=== PATIENT | female | born 1995 | race African-American/Black ===

== ENCOUNTER 2016-10-29 21:34 | Emergency (ER) | payer OTHER ==
[~2016-10-29] VITALS: Ht 180.3 cm; Wt 186.0 kg
[~2016-10-29 21:34] MED LIST: ANAPROX DS550 M1 PO; BACTRIM DS TABL1 TA1 PO; CIPRODEX OTIC7.5 ML OT; EC-NAPROSYN500 MG PO; ELIMITE60 G1 TP; FLEXERIL PO; KEFLEX500 MG PO; NO MEDICATIONS; VOLTAREN75 MG PO
[2016-10-29 23:39] LABS: URINE SOURCE CLEAN CATCH
[2016-10-29 23:41] LABS: URINE APPEARANCE CLEAR; URINE BILIRUBIN NEG (NEG); URINE BLOOD NEG (NEG); URINE COLOR YELLOW; URINE GLUCOSE NEG (NORM); URINE KETONE NEG (NEG); URINE LEUKOCYTE ESTERASE NEG (NEG); URINE NITRATE NEG (NEG); URINE PROTEIN NEG (NEG)
[2016-10-29 23:43] LABS: MICRO INDICATED? NO
[2016-11-01 01:34] LABS: CHLAMYDIA TRACH Not Detected (Not Detected); N GONOR Not Detected (Not Detected)
== END 2016-10-30 02:27 | disposition home or self-care (01) ==
LOC: SED 21:34
PROVIDERS: Nurse Practitioner
DX: L02.11 Cutaneous abscess of neck (principal); A59.9 Trichomoniasis, unspecified; Z20.2 Contact with and (suspected) exposure to infections with a predominantly sexual mode of transmission; E78.5 Hyperlipidemia, unspecified; J45.909 Unspecified asthma, uncomplicated; Z88.1 Allergy status to other antibiotic agents; Z23 Encounter for immunization
CPT/HCPCS: 10060; 81003; 84703; 87070; 87205; 87210; 87491; 87591; 87808; 87905; 90471; 90715; 96372; 99283; J0696